=== PATIENT | female | born 1955 | race Caucasian/White ===

== ENCOUNTER 2018-04-07 09:39 | Inpatient (IN) | payer MEDICAID ==
[2018-04-07] MEDS ORDERED: IPRATROPIUM/ALBUTEROL (0.5MG/3MG) NEB INH ONE (09:45)
[2018-04-07] MEDS ORDERED: METHYLPREDNISOLONE PF 125MG/VIAL IVP ONE (09:46)
[2018-04-07] MEDS ORDERED: AZITHROMYCIN 500 MG TABLET PO ONE (09:47)
--- NOTE | 2018-04-07 09:51 | Emergency Department Record ---
History of Present Illness - General Chief Complaint: Wheezing Stated Complaint: WHEEZING/CHEST CONGESTION Time Seen by Provider: 04/07/18 09:44 Source: Patient Mode of Arrival: Ambulatory Limitations: No limitations - History of Present Illness Initial Comments: 63 yo female presents with fever, cough, congestion,chest pain, palpitations and wheezing. The onset was about 5 days ago. The cough has been non productive. No nausea, vomiting or diarrhea. No edema or leg pain. She is concerned about her blood pressure as well. She was taken off her hypertension diuretic combination about 3 months ago. She had hip surgery at that time. She healed without complication. Her BP was low at that time and the medication was not restarted. She had a full cardiac work up at that time pre op that was normal including an ECHO and nuclear stress test. No cardiac history. The patient reports that she had an "abnormal EKG" prior to nasal and hip surgery this year. Because of the abnormal EKG she was sent to Dr Wan Lott of [facility]. She reports she had the ECHO and Stress test prior to surgery. Her understanding is the tests were normal. She has had prior palpitations. No known CAD, DVT, CHF. PCP is Taina Bruno. She has not seen her since surgery. She was seen by the PA once in the office. MD Complaint: Shortness of breath, Wheezing, Other (Cough, Fever) -: Days(s) (5) Asthma History: Other Severity: Moderate Context: Recent URI Associated Symptoms: Dry cough - Related Data Current Asthma Therapy: None Home Medications Medication Instructions Recorded Confirmed Last Taken Amitriptyline HCl [Elavil] 25 mg PO QHS 04/07/18 04/07/18 3 Days Ago ~04/04/18 Tramadol HCl [Ultram] 50 mg PO BID 04/07/18 04/07/18 Unknown Allergies Allergy/AdvReac Type Severity Reaction Status Date / Time Penicillins Allergy Mild hives Verified 04/07/18 09:53 Review of Systems Constitutional: Reports: Chills, Fever, Malaise Eyes: Denies: Eye discharge, Eye pain, Photophobia ENT: Reports: Congestion, Throat pain Respiratory: Reports: Cough, Dyspnea, Wheezes Cardiovascular: Reports: As per HPI, Chest pain Endocrine: Reports: Fatigue Gastrointestinal: Denies: Abdominal pain, Diarrhea, Nausea, Vomiting Musculoskeletal: Denies: Back pain, Gout, Joint swelling, Myalgia Skin: Denies: Bruising, Rash Neurological: Denies: Abnormal gait, Headache, Numbness, Tingling, Weakness Psychiatric: Denies: Anxiety Hematological/Lymphatic: Denies: Blood Clots, Easy bleeding, Easy bruising, Swollen glands Physical Exam - General General Appearance: Alert, Oriented x3, Cooperative, No acute distress Limitations: No limitations - Head Head exam: Atraumatic, Normal inspection - Eye Eye exam: Normal appearance, PERRL. negative: Conjunctival injection, Scleral icterus - ENT ENT exam: Normal exam, Mucous membranes moist, Normal orophraynx Ear exam: Normal external inspection Nasal Exam: Normal inspection Mouth exam: Normal external inspection Teeth exam: Normal inspection Throat exam: Normal inspection. negative: Tonsillar erythema - Neck Neck exam: Normal inspection. negative: Lymphadenopathy - Respiratory Respiratory exam: Decreased breath sounds, Prolonged expiratory, Rhonchi, Wheezes. negative: Normal lung sounds bilaterally, Accessory muscle use, Chest wall tenderness, Respiratory distress - Cardiovascular Cardiovascular Exam: Regular rate, Normal rhythm, Normal heart sounds - GI/Abdominal GI/Abdominal exam: Soft. negative: Tenderness - Rectal Rectal exam: Deferred - exam: Deferred - Extremities Extremities exam: Normal inspection, Full ROM, Normal capillary refill. negative: Calf tenderness, Pedal edema, Tenderness - Back Back exam: Denies: CVA tenderness (R), CVA tenderness (L) - Neurological Neurological exam: Alert, Normal gait, Oriented X3 - Psychiatric Psychiatric exam: Normal affect, Normal mood - Skin Skin exam: Dry, Intact, Normal color, Warm Course - Reevaluation(s) Reevaluation #1: 04/07/18 09:55 EKG NSR rate is 77 with PVC's, poor r wave progression, L axis, intervals normal. NS ST changes. 04/07/18 10:00 No old EKG on record at [facility] 04/07/18 10:27 After the duoneb the patient is mildly improved, wheezing in the RUL continues. 04/07/18 10:27 [facility] contacted for records. 04/07/18 10:31 The CMP was reviewed. No acute changes The Troponin is normal. The BNP is minimally elevated at 230 04/07/18 10:32 The Influenza were negative 04/07/18 11:[address] of the chest was completed. She has a right lower lobe pneumonia. Adenopathy that is likely reactive. A partial renal mass was seen. Follow up imaging of the abdomen was recommended. The patient informed of the findings and need for follow up to rule out cancer 04/07/18 11:49 Annia Marr of the admission service for pneumonia, hypertension, Medical Decision Making - Lab Data Result diagrams: 04/07/18 10:00 04/07/18 10:00 Disposition Disposition: Discharge Clinical Impression: Pneumonia Qualifiers: Pneumonia type: due to unspecified organism Laterality: right Lung location: lower lobe of lung Qualified Code(s): J18.1 - Lobar pneumonia, unspecified organism Disposition: Still a Patient at [facility] Decision to Admit: Admit from ER Decision to Admit Date: 04/07/18 Decision to Admit Time: 11:40 Condition: (2) Stable Forms: Patient Portal Access Time of Disposition: 11:52 Quality - Quality Measures Quality Measures: N/A - Blood Pressure Screening Does Patient Have Any of the Following: Active Dx of HTN Blood Pressure Classification: Hypertensive Reading Systolic Measurement: 191 Diastolic Measurement: 111 Screening for High Blood Pressure: Patient Exclusion, Hx of HTN [[id number]]
[2018-04-07] MEDS ORDERED: ASPIRIN 81 MG CHEWABLE TABLET PO ONE (09:59)
[2018-04-07 10:07] LABS: BASO % 0.2 % (0-6); EOS % 1.4 % (0-6); GRAN % 69.6 % (47-80); HEMATOCRIT 44.3 % (35.0-47.0); HEMOGLOBIN 14.8 gm/dl (11.6-16.0); LYMPH % 20.5 % (16-45); MEAN CORPUSCULAR HEMOGLOBIN 27.4 pg (27-33); MEAN CORPUSCULAR HGB CONC 33.4 g/dl (32-36); MEAN PLATELET VOLUME 10.6 fl (7.4-10.4); MONO % 8.3 % (0-9); PLATELET COUNT 212 K/uL (130-400); WHITE BLOOD COUNT W/O DIFF 5.1 K/uL (4.2-12.2)
[2018-04-07 10:17] LABS: BLOOD UREA NITROGEN 9 mg/dL (8-23); CREATININE 0.9 mg/dL (0.5-0.9); EST GLOMERULAR FILTRATION RATE > 60 mL/min
[2018-04-07 10:20] LABS: GLUCOSE,RANDOM 105 mg/dL (74-109)
[2018-04-07 10:29] LABS: INFLUENZA A NEGATIVE (NEGATIVE); INFLUENZA B NEGATIVE (NEGATIVE)
[2018-04-07 10:30] LABS: PARTIAL THROMBOPLASTIN TIME 30.1 SECONDS (24.5-39.1); PROTHROMBIN TIME (PATIENT) 10.3 SECONDS (9.5-12.1)
[2018-04-07] MEDS ORDERED: CEFTRIAXONE SODIUM 1 GM in 0.9 % SODIUM CHLORIDE 100ML 100 ML IVPB ONE (11:39)
[2018-04-07] MEDS ORDERED: IPRATROPIUM/ALBUTEROL (0.5MG/3MG) NEB INH PRN (13:45)
[2018-04-07] MEDS ORDERED: ATORVASTATIN 20 MG TABLET PO SCH (13:45)
[2018-04-07] MEDS ORDERED: ALPRAZOLAM 1 MG TAB PO PRN (13:45)
[2018-04-07] MEDS ORDERED: CEFTRIAXONE SODIUM 1 GM in 0.9 % SODIUM CHLORIDE 100ML 100 ML IVPB SCH (13:45)
[2018-04-07] MEDS: IPRATROPIUM/ALBUTEROL (0.5MG/3MG) NEB INH SCH ×3 (15:03→22:55)
[2018-04-07] MEDS: LISINOPRIL 5 MG TABLET PO SCH (15:15)
[2018-04-07] MEDS: TRAMADOL HCL 50 MG TABLET PO SCH (21:35)
[2018-04-07] MEDS ORDERED: AMITRIPTYLINE 25 MG TABLET PO SCH (22:00)
[2018-04-08] MEDS: IPRATROPIUM/ALBUTEROL (0.5MG/3MG) NEB INH SCH ×3 (02:32→09:59)
--- NOTE | 2018-04-08 02:38 | History & Physical ---
History of Present Illness - Date of Service Date of Service for History & Physical: 04/08/18 - History of Present Illness Admitting Diagnosis: Pneumonia History of Present Illness: Mrs. Ortiz is a 63 yo female who presented to the ED on 04/07/18 with fever, cough, congestion, palpitations and wheezing. The onset was about 5 days ago. The cough has been non productive. No nausea, vomiting or diarrhea. No edema or leg pain. She was concerned about her blood pressure as well. She was taken off her hypertension diuretic combination about 3 months ago. She had hip surgery at that time. She healed without complication. Her BP was low at that time and the medication was not restarted. She had a full cardiac work up at that time pre op that was normal including an ECHO and nuclear stress test. No cardiac history. The patient reports that she had an "abnormal EKG" prior to nasal and hip surgery this year. Because of the abnormal EKG she was sent to Dr Wan Lott of [facility]. She reports she had the ECHO and Stress test prior to surgery. Her understanding is the tests were normal. She has had prior palpitations. No known CAD, DVT, CHF. In the ED, her vital signs were stable (except for elevated BP) and CMP and CBC unremarkable. Her d dimer was elevated and a chest CT was done- it did demonstrate a right lower lobe pneumonia. She does have some adenopathy that is likely reactive, and a partial renal mass was visualized- f/u imaging of abdomen was recommended. Pt. was informed of findings and need to f/u to r/o cancer. BNP was slightly elevated at 230. Troponin was normal. Influenza test was negative. Her EKG showed NSR rate of 77 with PVCs, poor R wave progression, L axis and intervals normal. NS ST changes. After the duoneb the patient mildly improved, wheezing in the RUL continues. Pt. was admitted for pneumonia and hypertension- plan IV antibiotics and duo neb treatments. 04/08/18: Pt. is resting comfortably in bed this morning. She reports her symptoms have greatly improved. Wheezing greatly improved and in RUL only at this time. She has remained afebrile and her labs are unremarkable. Plan to change abx to PO and d/c home this evening. Travel Screening - Travel/Exposure Within Last 30 Days Have you traveled within the last 30 days?: No - Travel/Exposure Within Last Year Have you traveled outside the [place] in the last year?: No - Additonal Travel Details Have you been exposed to anyone with a communicable illness?: No - Travel Symptoms Symptom Screening: None Review of Systems Constitutional: Reports: Chills, Fever, Malaise Eyes: Denies: Eye discharge, Eye pain, Photophobia ENT: Reports: Congestion, Throat pain Respiratory: Reports: Cough, Dyspnea, Wheezes Cardiovascular: Reports: As per HPI, Chest pain Endocrine: Reports: Fatigue Gastrointestinal: Denies: Abdominal pain, Diarrhea, Nausea, Vomiting Musculoskeletal: Denies: Back pain, Gout, Joint swelling, Myalgia Skin: Denies: Bruising, Rash Neurological: Denies: Abnormal gait, Headache, Numbness, Tingling, Weakness Psychiatric: Denies: Anxiety Hematological/Lymphatic: Denies: Blood Clots, Easy bleeding, Easy bruising, Swollen glands Past Medical History - SOCIAL HISTORY Smoking Status: Never smoker Alcohol Use: None Drug Use: None - RESPIRATORY Hx Respiratory Disorders: Yes Comment:: seasonal allergies - CARDIOVASCULAR Hx Cardio Disorders: Yes Hx Hypertension: Yes Hx Hypotension: Yes (after surgery) Hx Irregular Heartbeat: Yes (feels when BP elevated) Comment:: cardiac stress 09/2017 at [facility] - [facility]UR[facility] Hx Neuro Disorders: No - GI Hx GI Disorders: No - Hx Genitourinary Disorders: No - ENDOCRINE Hx Endocrine Disorders: No Hx Diabetes: No Hx Thyroid Disease: No - MUSCULOSKELETAL Hx Musculoskeletal Disorders: Yes Hx Arthritis: Yes Hx Fibromyalgia: Yes - PSYCH Hx Anxiety: Yes Hx Depression: Yes - HEMATOLOGY/ONCOLOGY Hx Hematology/Oncology Disorders: Yes Hx Bruising: Yes Hx Cancer: Yes (nose) Family Medical History Any Significant Family History?: Yes Hx Cancer: Father *Cancer Comment: colon/liver Hx Heart Disease: Mother *Heart Comment: a-fib H&P Meds/Allergies - Allergies Allergies: Allergies Allergy/AdvReac Type Severity Reaction Status Date / Time Penicillins Allergy Mild hives Verified 04/07/18 09:53 - Home Medications Home Medications Medication Instructions Recorded Confirmed Last Taken Amitriptyline HCl [Elavil] 25 mg PO QHS 04/07/18 04/07/18 3 Days Ago ~04/04/18 Tramadol HCl [Ultram] 50 mg PO BID 04/07/18 04/07/18 Unknown Previous Rx's Medication Instructions Recorded Albuterol Sulfate [Ventolin Hfa] 1 puff INH RESP.Q4H PRN #1 inhaler 04/08/18 Azithromycin [Zithromax] 250 mg PO DAILY #3 tab 04/08/18 Cefdinir 300 mg PO BID #7 capsule 04/08/18 Lisinopril [Zestril] 5 mg PO DAILY #30 tablet 04/08/18 - Active Medications Active Medications: Current Medications Albuterol/Ipratropium (Duoneb) 3 ml INH RESP.Q4H REPLACED BY [facility] Last Admin: 04/08/18 02:32 Dose: 3 ml Alprazolam (Xanax) 1 mg PO BID PRN PRN Reason: ANXIETY Last Admin: 04/07/18 21:37 Dose: 1 mg Amitriptyline HCl (Elavil) 25 mg PO QHS REPLACED BY [facility] Last Admin: 04/07/18 21:35 Dose: 25 mg Atorvastatin Calcium (Lipitor) 10 mg PO QD REPLACED BY [facility] Last Admin: 04/07/18 15:15 Dose: 10 mg Baclofen (Lioresal) 10 mg PO DAILY REPLACED BY [facility] Enoxaparin Sodium (Lovenox) 40 mg SC DAILY REPLACED BY [facility] Azithromycin 500 mg/ Sodium (Chloride) 250 mls @ 250 mls/hr IVPB Q24H REPLACED BY [facility] Stop: 04/13/18 10:01 Ceftriaxone Sodium 1 gm/ (Sodium Chloride) 100 mls @ 100 mls/hr IVPB Q24H REPLACED BY [facility] Stop: 04/13/18 11:01 Lisinopril (Zestril) 5 mg PO DAILY REPLACED BY [facility] Last Admin: 04/07/18 15:15 Dose: 5 mg Tramadol HCl (Ultram) 50 mg PO BID REPLACED BY [facility] Last Admin: 04/07/18 21:35 Dose: Not Given Physical Exam - Vital Signs Vital Signs: Vital Signs - Last 24 Hrs Temp Pulse Pulse Pulse Resp BP BP 04/08/18 00:00 97.6 F 86 20 157/85 04/07/18 22:55 74 18 04/07/18 21:00 76 16 04/07/18 18:49 78 16 04/07/18 18:00 97.9 F 72 76 16 153/85 04/07/18 15:45 74 74 04/07/18 15:04 80 16 04/07/18 13:40 97.2 F L 74 18 159/91 04/07/18 12:02 74 18 158/99 04/07/18 11:06 71 18 176/82 04/07/18 10:05 82 16 04/07/18 09:42 98.0 F 83 18 191/111 Pulse Ox 04/08/18 00:00 97 04/07/18 22:55 98 04/07/18 21:00 04/07/18 18:49 96 04/07/18 18:00 97 04/07/18 15:45 04/07/18 15:04 95 04/07/18 13:40 97 04/07/18 12:02 97 04/07/18 11:06 98 04/07/18 10:05 04/07/18 09:42 94 L - General General Appearance: Alert, Oriented x3, Cooperative, No acute distress Limitations: No limitations - Head Head exam: Atraumatic, Normal inspection - Eye Eye exam: Normal appearance, PERRL. negative: Conjunctival injection, Scleral icterus - ENT ENT exam: Normal exam, Mucous membranes moist, Normal orophraynx Ear exam: Normal external inspection Nasal Exam: Normal inspection Mouth exam: Normal external inspection Teeth exam: Normal inspection Throat exam: Normal inspection. negative: Tonsillar erythema - Neck Neck exam: Normal inspection. negative: Lymphadenopathy - Respiratory Respiratory exam: Decreased breath sounds, Prolonged expiratory, Rhonchi, Wheezes. negative: Normal lung sounds bilaterally, Accessory muscle use, Chest wall tenderness, Respiratory distress - Cardiovascular Cardiovascular Exam: Regular rate, Normal rhythm, Normal heart sounds - GI/Abdominal GI/Abdominal exam: Soft. negative: Tenderness - Rectal Rectal exam: Deferred - exam: Deferred - Extremities Extremities exam: Normal inspection, Full ROM, Normal capillary refill. negative: Calf tenderness, Pedal edema, Tenderness - Back Back exam: Denies: CVA tenderness (R), CVA tenderness (L) - Neurological Neurological exam: Alert, Normal gait, Oriented X3 - Psychiatric Psychiatric exam: Normal affect, Normal mood - Skin Skin exam: Dry, Intact, Normal color, Warm Results - Labs Result Diagrams: 04/08/18 06:00 04/08/18 06:00 Labs Last 24 Hours: Laboratory Results - last 24 hr 04/07/18 04/07/18 04/07/18 09:45 09:54 10:00 WBC 5.1 RBC 5.40 Hgb 14.8 Hct 44.3 MCV 82.0 MCH 27.4 MCHC 33.4 RDW 14.0 Plt Count 212 MPV 10.6 H Gran % 69.6 Lymphocytes % 20.5 Monocytes % 8.3 Eosinophils % 1.4 Basophils % 0.2 PT INR APTT D-Dimer Sodium Cancelled Potassium Cancelled Chloride Cancelled Carbon Dioxide Cancelled Anion Gap Cancelled BUN Cancelled Creatinine Cancelled Estimated GFR Cancelled Random Glucose Cancelled Calcium Cancelled Magnesium Cancelled Troponin T NT-Pro-B Natriuret Pep Influenza Type A Ag Influenza Type B Ag 04/07/18 04/07/18 04/07/18 10:00 10:00 10:00 WBC RBC Hgb Hct MCV MCH MCHC RDW Plt Count MPV Gran % Lymphocytes % Monocytes % Eosinophils % Basophils % PT INR APTT D-Dimer 1.20 H Sodium 145 Potassium 3.6 Chloride 101 Carbon Dioxide 28.0 Anion Gap 16.0 BUN 9 Creatinine 0.9 Estimated GFR > 60 Random Glucose 105 Calcium 9.2 Magnesium 2.1 Troponin T < 0.010 NT-Pro-B Natriuret Pep 230.40 H Influenza Type A Ag Negative Influenza Type B Ag Negative 04/07/18 04/07/18 10:00 16:20 WBC RBC Hgb Hct MCV MCH MCHC RDW Plt Count MPV Gran % Lymphocytes % Monocytes % Eosinophils % Basophils % PT 10.3 INR 1.0 APTT 30.1 D-Dimer Sodium Potassium Chloride Carbon Dioxide Anion Gap BUN Creatinine Estimated GFR Random Glucose Calcium Magnesium Troponin T < 0.010 NT-Pro-B Natriuret Pep Influenza Type A Ag Influenza Type B Ag - Imaging and Cardiology CT scan - chest Status: Pending, Image reviewed (RLL pneumonia) VTE H&P Assessment - Risk for VTE Risk for VTE: Yes Risk Level: Low Risk Assessment Date: 04/08/18 Risk Assessment Time: 02:35 VTE Orders Placed or Will Be Placed: Yes Plan - Inpatient Certification Inpatient Certification: Admit to inpatient care: Based on my medical assessment, after consideration of patient's risk factors (age, co-morbidities and patient presenting symptoms and acuity), I expect that this patient will remain in the hospital greater than or equal to two midnights and that the services needed warrant inpatient care because: Patient Risk Factors: [age, co-morbidities] Estimated length of stay: [48-72 hours] The patient may reasonably be expected to be discharged or transferred to a hospital within 96 hours after admission to [facility]. Services needed: [IV antibiotics, respiratory treatments, monitoring of labs and vital signs] Post hospital care (if known): [] I certify that my determination is in accordance with my understanding of Medicare requirements for reasonable and necessary inpatient services. 04/08/18 02:36 - Detailed Diagnosis and Plan (1) Right lower lobe pneumonia Status: Acute Base Code: J18.1 - LOBAR PNEUMONIA, UNSPECIFIED ORGANISM Comment: 04/08/18: RLL pneumonia identified on chest CT in ED on 04/07/18. Rocephin 1gm q24h IV and azithromycin 500mg daily started, duo nebs q4h. Will plan to change to po abx today if improvement upon assessment. (2) Hypertension Status: Acute Base Code: I10 - ESSENTIAL (PRIMARY) HYPERTENSION Comment: : Pt. has hx of hypertension, she has been off her lisinopril/hctz since . She was hypertensive in the ED, remains >150/95. Pt. monitors bp at home and she reports upward trends. 5mg lisinopril daily started. CMP unremarkable, will recheck labs in the am and continue to monitor vital signs. (3) At risk for deep venous thrombosis Status: Acute Base Code: Z91.89 - OTH PERSONAL RISK FACTORS, NOT ELSEWHERE CLASSIFIED Comment: 04/08/18: 40mg sc lovenox daily for dvt prophylaxis (4) Full code status Status: Acute Base Code: Z78.9 - OTHER SPECIFIED HEALTH STATUS Comment: 04/08: Pt. is full code
[2018-04-08 06:09] LABS: BASO % 0.2 % (0-6); GRAN % 75.6 % (47-80); HEMATOCRIT 40.6 % (35.0-47.0); HEMOGLOBIN 13.8 gm/dl (11.6-16.0); MEAN CORPUSCULAR HEMOGLOBIN 27.9 pg (27-33); MEAN PLATELET VOLUME 10.6 fl (7.4-10.4); MONO % 12.2 % (0-9); PLATELET COUNT 230 K/uL (130-400); RED BLOOD COUNT 4.95 M/uL (3.80-5.40); RED CELL DISTRIBUTION WIDTH 14.1 % (11.5-14.5); WHITE BLOOD COUNT W/O DIFF 5.4 K/uL (4.2-12.2)
[2018-04-08 06:36] LABS: ALB/GLOB RATIO 1.6 (1.1-1.8); ALBUMIN 4.2 g/dL (4.0-5.0); ALKALINE PHOSPHATASE 68 U/L (35-104); ALT/SGPT 12 U/L (<33); AST/SGOT 14 U/L (10.0-35.0); BLOOD UREA NITROGEN 18 mg/dL (8-23); CREATININE 0.8 mg/dL (0.5-0.9); EST GLOMERULAR FILTRATION RATE > 60 mL/min; GLUCOSE,RANDOM 113 mg/dL (74-109); TOTAL PROTEIN 6.8 g/dL (6.6-8.7)
[2018-04-08] MEDS: TRAMADOL HCL 50 MG TABLET PO SCH ×2 (09:45→11:43)
[2018-04-08] MEDS: LISINOPRIL 5 MG TABLET PO SCH (09:45)
[2018-04-08] MEDS ORDERED: BACLOFEN 10 MG TABLET PO SCH (10:00)
[2018-04-08] MEDS ORDERED: ENOXAPARIN 40 MG/0.4 ML SYR SC SCH (10:00)
[2018-04-08] MEDS ORDERED: AZITHROMYCIN 500 MG in 0.9 % SODIUM CHLORIDE 250ML 250 ML IVPB SCH (10:00)
[2018-04-08] MEDS ORDERED: CEFTRIAXONE SODIUM 1 GM in 0.9 % SODIUM CHLORIDE 100ML 100 ML IVPB SCH (11:00)
[2018-04-08] MEDS ORDERED: ALBUTEROL HFA 8 GM INHALER INH PRN (11:29)
[2018-04-08] MEDS ORDERED: CEFDINIR 300 MG CAPSULE PO SCH (11:30)
--- NOTE | 2018-04-08 11:37 | Discharge Summary ---
Providers Discharge Summary Date: 04/08/18 Date of admission: 04/07/18 13:20 Expected Date of Discharge: 04/08/18 Attending physician: YANDY SCHWARTZ Primary care physician: GIRMA ALFREDO M.D. Physical Exam - Vital Signs Vital Signs: Vital Signs - Last 24 Hrs Temp Pulse Pulse Pulse Resp BP Pulse Ox 04/08/18 10:00 97.9 F 84 78 18 141/78 96 04/08/18 08:58 80 80 16 04/08/18 06:09 70 16 96 04/08/18 02:34 81 16 99 04/08/18 00:00 97.6 F 86 20 157/85 97 04/07/18 22:55 74 18 98 04/07/18 21:00 76 16 04/07/18 18:49 78 16 96 04/07/18 18:00 97.9 F 72 76 16 153/85 97 04/07/18 15:45 74 74 04/07/18 15:04 80 16 95 04/07/18 13:40 97.2 F L 74 18 159/91 97 04/07/18 12:02 74 18 158/99 97 - General General Appearance: Alert, Oriented x3, Cooperative, No acute distress Limitations: No limitations - Head Head exam: Atraumatic, Normal inspection - Eye Eye exam: Normal appearance, PERRL. negative: Conjunctival injection, Scleral icterus - ENT ENT exam: Normal exam, Mucous membranes moist, Normal orophraynx Ear exam: Normal external inspection Nasal Exam: Normal inspection Mouth exam: Normal external inspection Teeth exam: Normal inspection Throat exam: Normal inspection. negative: Tonsillar erythema - Neck Neck exam: Normal inspection. negative: Lymphadenopathy - Respiratory Respiratory exam: Prolonged expiratory, Wheezes (RUL expiratory wheeze). negative: Normal lung sounds bilaterally, Accessory muscle use, Chest wall tenderness, Respiratory distress - Cardiovascular Cardiovascular Exam: Regular rate, Normal rhythm, Normal heart sounds - GI/Abdominal GI/Abdominal exam: Soft. negative: Tenderness - Rectal Rectal exam: Deferred - exam: Deferred - Extremities Extremities exam: Normal inspection, Full ROM, Normal capillary refill. negative: Calf tenderness, Pedal edema, Tenderness - Back Back exam: Denies: CVA tenderness (R), CVA tenderness (L) - Neurological Neurological exam: Alert, Normal gait, Oriented X3 - Psychiatric Psychiatric exam: Normal affect, Normal mood - Skin Skin exam: Dry, Intact, Normal color, Warm Hospitalization - Hospitalization Admission Diagnosis: Pneumonia - Problem List/Discharge Diagnosis (1) Right lower lobe pneumonia Status: Acute Base Code: J18.1 - LOBAR PNEUMONIA, UNSPECIFIED ORGANISM Comment: 04/08/18: RLL pneumonia identified on chest CT in ED on 04/07/18. ABX changed to PO this morning- 300mg cefdinir bid and azithromycin 250mg daily ( total of 5 day antibiotic therapy). Wheezing has improved and will d/c home today- will send albuterol inhaler for home use- RT to teach proper use of inhaler and provide a spacer. (2) Hypertension Status: Acute Base Code: I10 - ESSENTIAL (PRIMARY) HYPERTENSION Comment: : Pt. has hx of hypertension, she has been off her lisinopril/hctz since . She was hypertensive in the ED, remains >150/95. Pt. monitors bp at home and she reports upward trends. 5mg lisinopril daily started. Labs unremarkable. Seriel troponins unremarkable. BP has responded to 5mg lisinopril- now 144/77. (was 176/82 in ED). Will d/c home with Rx of lisinopril- pt. to f/u with pcp for management. (3) At risk for deep venous thrombosis Status: Acute Base Code: Z91.89 - OTH PERSONAL RISK FACTORS, NOT ELSEWHERE CLASSIFIED Comment: 04/08/18: Plan to d/c home today and pt. will return to normal level of activity. (4) Full code status Status: Acute Base Code: Z78.9 - OTHER SPECIFIED HEALTH STATUS Comment: 04/08: Pt. is full code - Hospitalization Course Disposition: Home, Self-Care Hospital Course: Mrs. Ortiz is a 63 yo female who presented to the ED on 04/07/18 with fever, cough, congestion, palpitations and wheezing. The onset was about 5 days ago. The cough has been non productive. No nausea, vomiting or diarrhea. No edema or leg pain. She was concerned about her blood pressure as well. She was taken off her hypertension diuretic combination about 3 months ago. She had hip surgery at that time. She healed without complication. Her BP was low at that time and the medication was not restarted. She had a full cardiac work up at that time pre op that was normal including an ECHO and nuclear stress test. No cardiac history. The patient reports that she had an "abnormal EKG" prior to nasal and hip surgery this year. Because of the abnormal EKG she was sent to Dr Wan Lott of [facility]. She reports she had the ECHO and Stress test prior to surgery. Her understanding is the tests were normal. She has had prior palpitations. No known CAD, DVT, CHF. In the ED, her vital signs were stable (except for elevated BP) and CMP and CBC unremarkable. Her d dimer was elevated and a chest CT was done- it did demonstrate a right lower lobe pneumonia. She does have some adenopathy that is likely reactive, and a partial renal mass was visualized- f/u imaging of abdomen was recommended. Pt. was informed of findings and need to f/u to r/o cancer. BNP was slightly elevated at 230. Troponin was normal. Influenza test was negative. Her EKG showed NSR rate of 77 with PVCs, poor R wave progression, L axis and intervals normal. NS ST changes. After the duoneb the patient mildly improved, wheezing in the RUL continues. Pt. was admitted for pneumonia and hypertension- plan IV antibiotics and duo neb treatments. 04/08/18: Pt. is resting comfortably in bed this morning. She reports her symptoms have greatly improved. Wheezing greatly improved and in RUL only at this time. She has remained afebrile and her labs are unremarkable. Plan to change abx to PO and d/c home this evening. Procedures: Imaging and X-Rays 04/07/18 10:36 CHEST CTA w contrast [CTA] Stat Cardiology Procedures 04/07/18 09:45 Manager Clinical NOW EKG NOW 04/07/18 13:45 Manager Clinical .Continuous Abnormal Labs: Abnormal Lab Results 04/07/18 04/07/18 04/07/18 Range/Units 10:00 10:00 10:00 MPV 10.6 H (7.4-10.4) fl Lymphocytes % (16-45) % Monocytes % (0-9) % D-Dimer 1.20 H (0-0.59) mg/L FEU Anion Gap (7-16) Random Glucose (74-109) mg/dL NT-Pro-B Natriuret Pep 230.40 H (<125) pg/mL 04/08/18 04/08/18 Range/Units 06:00 06:00 MPV 10.6 H (7.4-10.4) fl Lymphocytes % 12.0 L (16-45) % Monocytes % 12.2 H (0-9) % D-Dimer (0-0.59) mg/L FEU Anion Gap 20.0 H (7-16) Random Glucose 113 H (74-109) mg/dL NT-Pro-B Natriuret Pep (<125) pg/mL Condition at Discharge: (2) Stable VTE Discharge VTE Reason For No Overlap Therapy: Not Indicated (Pt. will return to normal level of activity) Discharge Medications - Discharge Medications Prescriptions: Albuterol Sulfate [Ventolin Hfa] 1 puff INH RESP.Q4H PRN #1 inhaler PRN Reason: Wheezing Azithromycin [Zithromax] 250 mg PO DAILY #3 tab Cefdinir 300 mg PO BID #7 capsule Lisinopril [Zestril] 5 mg PO DAILY #30 tablet Home Medications: Ambulatory Orders Alprazolam [Xanax] 1 mg PO BID PRN tab 01/26/18 [Last Taken 1 Day Ago ~04/06/18 ] Atorvastatin Calcium 10 mg PO QD tab 01/26/18 [Last Taken 1 Day Ago ~04/06/18] Baclofen 10 mg PO DAILY tab 01/26/18 [Last Taken 1 Day Ago ~04/06/18] Amitriptyline HCl [Elavil] 25 mg PO QHS 04/07/18 [Last Taken 3 Days Ago ~] Tramadol HCl [Ultram] 50 mg PO BID 04/07/18 [Last Taken Unknown] Albuterol Sulfate [Ventolin Hfa] 1 puff INH RESP.Q4H PRN #1 inhaler 04/08/18 [ Last Taken Unknown] Azithromycin [Zithromax] 250 mg PO DAILY #3 tab 04/08/18 [Last Taken Unknown] Cefdinir 300 mg PO BID #7 capsule 04/08/18 [Last Taken Unknown] Lisinopril [Zestril] 5 mg PO DAILY #30 tablet 04/08/18 [Last Taken Unknown] Discharge Plan - Discharge Instructions Activity at Discharge: Increase Activity as Tolerated Diet at Discharge: Regular Diet Additional Instructions: Start azithromycin 250mg daily at 10am on 04/09/18 Start cefdinir 300mg twice daily, first dose tonight at 11pm Albuterol inhaler every 4 hours for cough/wheezing Drink plenty of fluids, mucinex over the counter can also help to thin secretions Follow up with your primary care provider in 5-7 days Return to the ED if you develop worsening shortness of breath or any chest pain Quality Measures - Quality Measures Quality Measures: Documentation of Current Medications in Medical Record, Screening for High Blood Pressure and F/U Documented - Current Medications Quality Measure: Measure #130: Documentation of Current Medications Documentation of Current Medications: <Current Medications Documented/Reviewed> [G8427] - Blood Pressure Screening Quality Measure: Screening for High Blood Pressure and Follow-Up Documented Does Patient Have Any of the Following: Active Dx of HTN Blood Pressure Classification: Hypertensive Reading Systolic Measurement: 191 Diastolic Measurement: 111 Screening for High Blood Pressure: Patient Exclusion, Hx of HTN [G9744] - Elder Abuse Suspicion Index EASI Reference Information: Daniel JOHNSON, Jacque C, Mary Alice D, Dayan Bill.Development and validation of a tool to assist physicians identification of elder abuse: The Elder Abuse Suspicion Index (EASI ). Journal of Elder Abuse and Neglect, 2008; 20 (3): 276-300.
--- NOTE | 2018-04-08 20:55 | CT ANGIOGRAM REPORT ---
EXAM: CT ANGIOGRAM CHEST CTA w contrast HISTORY: COUGH, WHEEZING, AND CHEST PAIN FOR 5 DAYS. ELEVATED D-DIMER. EVALUATE FOR PULMONARY EMBOLUS. TECHNIQUE: Routine CT angiography images obtained of the chest following intravenous administration of contrast. Amount and type of contrast in the medical record. FINDINGS: A 15 mm exophytic hypodense nodule right lobe of the thyroid. This could be further assessed with thyroid ultrasound. Heart is not enlarged. No pericardial effusion. Aorta enhances normally with contrast. No central filling defects in the pulmonary arteries to suggest acute PE. There are prominent bilateral hilar lymph nodes measuring slightly greater than 10 mm short axis. There are multiple mildly prominent mediastinal lymph nodes, though nonenlarged by CT criteria. There is infiltrate within the superior segment right lower lobe. No pleural effusions. Visualized upper abdomen demonstrates a questioned left renal mass on most inferior images. No acute osseous abnormality. IMPRESSION: 1. NO PULMONARY EMBOLUS. 2. PATCHY INFILTRATE SUPERIOR SEGMENT RIGHT LOWER LOBE. 3. ENLARGED BILATERAL HILAR LYMPH NODES, WHICH COULD BE REACTIVE. PREVIOUS IMAGES UNAVAILABLE TO DOCUMENT STABILITY. A PRECAUTION, CONSIDER FOLLOW-UP CT IN THREE MONTHS, UNDERLYING NEOPLASTIC PROCESS NOT EXCLUDED. 4. ALSO INCIDENTALLY NOTED ON MOST INFERIOR IMAGES IS A POSSIBLE MASS IN THE LEFT KIDNEY. THIS COULD BE FURTHER ASSESSED WITH POSTCONTRAST CT OF THE ABDOMEN AND PELVIS. JOB NUMBER: [id number] [facility]
[2018-04-09] MEDS ORDERED: AZITHROMYCIN 250 MG TABLET PO SCH (10:00)
== END 2018-04-08 13:05 | disposition home or self-care (01) | DRG 195 ==
LOC: ER 09:39 → MEDSURG 13:20
PROVIDERS: ADMIT Internal Medicine; ATTEND Internal Medicine
DX: J18.9 Pneumonia, unspecified organism (principal); R00.2 Palpitations; R50.9 Fever, unspecified; R05 Cough; I10 Essential (primary) hypertension; M19.90 Unspecified osteoarthritis, unspecified site; M79.7 Fibromyalgia; Z85.828 Personal history of other malignant neoplasm of skin
CPT/HCPCS: 71275; 80048; 80053; 83735; 83880; 84484; 85025; 85379; 85610; 85730; 87400; 93005; 93010; 94640; 94664; 96365; 96375; 99223; 99285; J0456; J1650; J2930; J7050

== ENCOUNTER 2019-05-26 23:54 | Emergency (ER) | payer MEDICAID ==
[2019-05-27 00:06] LABS: URINE APPEARANCE CLOUDY; URINE BILIRUBIN NEGATIVE (NEGATIVE); URINE BLOOD LARGE (NEGATIVE); URINE COLOR RED; URINE GLUCOSE (UA) NEGATIVE (NEGATIVE); URINE KETONE TRACE (NEGATIVE)
[2019-05-27 00:07] LABS: URINE PROTEIN 300 mg/dL (NEGATIVE)
[2019-05-27 00:09] LABS: URINE BACTERIA NONE SEEN; URINE EPITHELIAL CELLS NONE SEEN (FEW); URINE NITRITE POSITIVE (NEGATIVE); URINE WBC NONE SEEN (0-2/hpf)
[2019-05-27 00:10] LABS: URINE LEUKOCYTE ESTERASE SMALL (NEGATIVE)
--- NOTE | 2019-05-27 00:28 | Emergency Department Record ---
History of Present Illness - General Chief complaint: Female Urogenital Problem Stated complaint: BLOOD IN URINE Time Seen by Provider: 05/27/19 00:16 Source: Patient Mode of Arrival: Ambulatory Limitations: No limitations - History of Present Illness Initial comments: pt had sudden onset of hematuria w pressure and l flank pain Complaint: Pelvic pain Onset/Timin -: Hour(s) Radiation: L flank Severity: Mild Severity scale (1-10): 2 Quality: Dull Consistency: Intermittent Improves with: None Worsens with: None Patient : No Associated Symptoms: Denies other symptoms - Related Data Previous Rx's Medication Instructions Recorded Albuterol Sulfate [Ventolin Hfa] 1 puff INH RESP.Q4H PRN #1 inhaler 04/08/18 Allergies Allergy/AdvReac Type Severity Reaction Status Date / Time Penicillins Allergy Mild hives Verified 04/07/18 09:53 Travel Screening - Travel/Exposure Within Last 30 Days Have you traveled within the last 30 days?: No - Travel/Exposure Within Last Year Have you traveled outside the [place] in the last year?: No - Additonal Travel Details Have you been exposed to anyone with a communicable illness?: No - Travel Symptoms Symptom Screening: None Review of Systems Reviewed: No additional complaints except as noted below Constitutional: Reports: As per HPI. Denies: Chills, Fever, Malaise, Night sweats, Weakness, Weight change Eyes: Reports: As per HPI. Denies: Eye discharge, Eye pain, Photophobia, Vision change ENT: Reports: As per HPI. Denies: Congestion, Dental pain, Ear pain, Epistaxis, Hearing loss, Throat pain Respiratory: Reports: As per HPI. Denies: Cough, Dyspnea, Hemoptysis, Stridor, Wheezes Cardiovascular: Reports: As per HPI. Denies: Arrhythmia, Chest pain, Dyspnea on exertion, Edema, Murmurs, Orthopnea, Palpitations, Paroxysmal nocturnal dyspnea, Rheumatic Fever, Syncope Endocrine: Reports: As per HPI. Denies: Fatigue, Heat or cold intolerance, Polydipsia, Polyuria Gastrointestinal: Reports: As per HPI. Denies: Abdominal pain, Constipation, Diarrhea, Hematemesis, Hematochezia, Melena, Nausea, Vomiting Genitourinary: Reports: As per HPI, Hematuria. Denies: Abnormal menses, Discharge, Dyspareunia, Dysuria, Frequency, Incontinence, Retention, Urgency Musculoskeletal: Reports: As per HPI. Denies: Arthralgia, Back pain, Gout, Joint swelling, Myalgia, Neck pain Skin: Reports: As per HPI. Denies: Bruising, Change in color, Change in hair/nails, Lesions, Pruritus, Rash Neurological: Reports: As per HPI. Denies: Abnormal gait, Confusion, Headache, Numbness, Paresthesias, Seizure, Tingling, Tremors, Vertigo, Weakness Psychiatric: Reports: As per HPI. Denies: Anxiety, Auditory hallucinations, Depression, Homicidal thoughts, Suicidal thoughts, Visual hallucinations Hematological/Lymphatic: Reports: As per HPI. Denies: Anemia, Blood Clots, Easy bleeding, Easy bruising, Swollen glands Past Medical History - SOCIAL HISTORY Smoking Status: Never smoker Alcohol Use: None Drug Use: None - RESPIRATORY Hx Respiratory Disorders: Yes Comment:: seasonal allergies - CARDIOVASCULAR Hx Cardio Disorders: Yes Hx Hypertension: Yes Hx Hypotension: Yes (after surgery) Hx Irregular Heartbeat: Yes (feels when BP elevated) Comment:: cardiac stress 09/2017 at [facility] - NEURO Hx Neuro Disorders: No - GI Hx GI Disorders: No - Hx Genitourinary Disorders: Yes Hx Kidney Stones: No Hx UTI: Yes - ENDOCRINE Hx Endocrine Disorders: No Hx Diabetes: No Hx Thyroid Disease: No - MUSCULOSKELETAL Hx Musculoskeletal Disorders: Yes Hx Arthritis: Yes Hx Fibromyalgia: Yes - PSYCH Hx Anxiety: Yes Hx Depression: Yes - HEMATOLOGY/ONCOLOGY Hx Hematology/Oncology Disorders: Yes Hx Bruising: Yes Hx Cancer: Yes (nose) Family Medical History Any Significant Family History?: Yes Hx Cancer: Father *Cancer Comment: colon/liver Hx Heart Disease: Mother *Heart Comment: a-fib Physical Exam - General General Appearance: Alert, Oriented x3, Cooperative, Mild distress - Head Head exam: Normal inspection - Eye Eye exam: Normal appearance, PERRL, EOMI Pupils: Normal accommodation - ENT ENT exam: Normal exam, Mucous membranes moist, Normal external ear exam, Normal orophraynx Ear exam: Normal external inspection. negative: External canal tenderness Nasal Exam: Normal inspection. negative: Discharge, Sinus tenderness Mouth exam: Normal external inspection, Tongue normal Teeth exam: Normal inspection. negative: Dental caries Throat exam: Normal inspection. negative: Tonsillar erythema, Tonsillar exudate - Neck Neck exam: Normal inspection, Full ROM. negative: Tenderness - Respiratory Respiratory exam: Normal lung sounds bilaterally. negative: Respiratory distress - Cardiovascular Cardiovascular Exam: Regular rate, Normal rhythm, Normal heart sounds - GI/Abdominal GI/Abdominal exam: Soft, Normal bowel sounds, Tenderness - Rectal Rectal exam: Deferred - exam: Deferred - Extremities Extremities exam: Normal inspection, Full ROM, Normal capillary refill. negative: Tenderness - Back Back exam: Reports: Normal inspection, CVA tenderness (L), Full ROM. Denies: Muscle spasm, Rash noted, Tenderness - Neurological Neurological exam: Alert, CN II-XII intact, Normal gait, Oriented X3 - Psychiatric Psychiatric exam: Normal affect, Normal mood - Skin Skin exam: Dry, Intact, Normal color, Warm Course Vital Signs 05/27/19 05/27/19 00:00 00:04 Temperature 97.7 F 97.7 F Pulse Rate 69 Pulse Rate [ 74 Pulse Ox Probe] Respiratory 20 20 Rate Blood Pressure 157/131 Blood Pressure 186/88 [Left Arm] Pulse Ox 96 98 - Reevaluation(s) Reevaluation #1: 05/27/19 01:56 pt has 7cm renal mass. this was partially seen in 04/06 and further evaluation was highly recommended.. pt states she has not had any further eval because she had an ultrasound of her kidney in 2017 that was fine. she states she had a conversation w her family doctor regarding this. Medical Decision Making - Lab Data Result diagrams: 05/27/19 00:10 05/27/19 00:10 Lab Results 05/27/19 Range/Units 00:07 Urine Color Red H Urine Appearance Cloudy Urine pH 7.0 (5.0-8.0) Ur Specific [place] 1.020 (1.002-1.030) Urine Protein 300 mg/dl H (NEGATIVE) Urine Glucose (UA) Negative (NEGATIVE) Urine Ketones Trace H (NEGATIVE) Urine Blood Large H (NEGATIVE) Urine Nitrite Positive H (NEGATIVE) Urine Bilirubin Negative (NEGATIVE) Urine Urobilinogen 2.0 H (0.20 - 1.00) E.U./dL Ur Leukocyte Esterase Small H (NEGATIVE) Urine RBC Too numerous to cnt (NONE SEEN) Urine WBC None seen (0-2/hpf) Ur Epithelial Cells None seen (FEW) Urine Bacteria None seen Disposition Disposition: Transfer Clinical Impression: Left kidney mass Hydronephrosis Qualifiers: Hydronephrosis type: other Qualified Code(s): N13.39 - Other hydronephrosis Disposition: Acute Care Hospital Transfer Transfer To: [facility] Reason For Transfer: needs further eval Accepting Physician: morales marquez and aria Time Discussed w/Accepting Physician: 02:13 Forms: Patient Portal Access Quality - Quality Measures Quality Measures: N/A - Blood Pressure Screening Does Patient Have Any of the Following: Active Dx of HTN Blood Pressure Classification: Hypertensive Reading Systolic Measurement: 157 Diastolic Measurement: 131 Screening for High Blood Pressure: Patient Exclusion, Hx of HTN [G9744]
[2019-05-27 00:32] LABS: ABSOLUTE NEUTROPHIL COUNT 4.01; BASO % 0.4 % (0-6); HEMATOCRIT 45.8 % (35.0-47.0); HEMOGLOBIN 15.4 gm/dl (11.6-16.0); LYMPH % 38.6 % (16-45); MEAN CELL VOLUME 86.1 fl (81-97); MEAN CORPUSCULAR HEMOGLOBIN 28.9 pg (27-33); MEAN CORPUSCULAR HGB CONC 33.6 g/dl (32-36); MEAN PLATELET VOLUME 10.9 fl (7.4-10.4); PLATELET COUNT 296 K/uL (130-400); RED BLOOD COUNT 5.32 M/uL (3.80-5.40); RED CELL DISTRIBUTION WIDTH 13.4 % (11.5-14.5); WHITE BLOOD COUNT W/O DIFF 8.3 K/uL (4.2-12.2)
[2019-05-27 00:50] LABS: BLOOD UREA NITROGEN 13 mg/dL (8-23); CREATININE 0.9 mg/dL (0.5-0.9); EST GLOMERULAR FILTRATION RATE > 60 mL/min
[2019-05-27 00:53] LABS: GLUCOSE,RANDOM 99 mg/dL (74-109)
[2019-05-27] MEDS ORDERED: HYDROMORPHONE HCL 2 MG/ML VIAL IVP ONE (02:12)
[2019-05-27] MEDS ORDERED: ONDANSETRON HCL IV 4 MG/2 ML VIAL IVP ONE (02:12)
--- NOTE | 2019-05-29 07:32 | CT SCAN REPORT ---
EXAM: CT OF THE ABDOMEN AND PELVIS WITHOUT CONTRAST HISTORY: LEFT SIDED BACK PAIN. HEMATURIA. TECHNIQUE: Helical CT examination of the abdomen and pelvis was performed without oral or intravenous contrast administration. Lack of oral and IV contrast utilization limits evaluation of the bowel and solid viscera respectively. Comparison: CT angiogram of the chest dated 04/07/18. FINDINGS: There is minimal dependent atelectasis within the right lung base. There is a 4.7 mm noncalcified nodule in the right middle lobe. On the prior examination this measures 4.2 mm. This is not considered a significant interval change. The lung bases are otherwise clear. No pleural or pericardial effusion. The liver, spleen, pancreas, and adrenal glands are normal in appearance. The gallbladder is unremarkable and no biliary ductal dilatation is seen. A large left renal mass is present involving the medial lower two-thirds with deformity of the renal sinus. This measures 6.9 x 7.4 x 6.6 cm. It is somewhat heterogeneous in density. It is not a simple cyst and is suspicious for malignancy. There is associated presumed hemorrhage within a dilated upper pole intrarenal collecting system on the left. There is likely extrinsic compression of the lower pole collecting system. No obstructing calculus. There is a mass arising exophytically from the posterolateral mid to lower right kidney. This measures 2.2 x 2.2 x 2.4 cm. This has a density higher than simple fluid. A solid mass is not excluded. Just anterior to this is an additional hypodense mass appearing to have fluid density. This measures 1.6 x 1.7 cm. This is likely a cyst. A too small to characterize hypodense mass arises exophytically from the medial upper pole of the left kidney measuring 9- 10 mm. This has not significantly changed since the prior CTA chest examination. No nephrolithiasis. The right renal collecting system is normal in caliber without a ureteral calculus noted. No intraabdominal nor retroperitoneal lymphadenopathy. There is mild atherosclerosis without aneurysmal dilatation. Evaluation of the lower pelvis is limited by beam hardening artifact from bilateral hip prostheses. There is a questionable mass like filling defect in the left posterior aspect of the urinary bladder lumen. This is poorly visualized due to artifact. This measures approximately 4.2 x 5.1 cm. This may represent a blood clot though a solid mass is not excluded. No other focal urinary bladder abnormality is seen. No other evidence of pelvic mass nor adenopathy. No gross bowel dilatation nor bowel wall thickening. The appendix is visualized and normal in appearance. IMPRESSION: 1. LARGE LEFT RENAL MASS SUSPICIOUS FOR MALIGNANCY. THERE IS ASSOCIATED HEMORRHAGE WITHIN A DILATED UPPER POLE COLLECTING SYSTEM. THIS DILATATION MAY RELATE TO EXTRINSIC COMPRESSION BY THE LARGE MASS. 2. MASS ARISING EXOPHYTICALLY FROM THE RIGHT KIDNEY WHICH DOES NOT MEET STRICT DENSITY CRITERIA FOR A SIMPLE CYST. AN ADDITIONAL SOLID MASS CANNOT BE EXCLUDED. FURTHER EVALUATION WITH PRE AND POST CONTRAST ADMINISTRATION MULTIPHASE CT OR MRI EXAMINATION IS RECOMMENDED. THERE IS LIKELY AN ADDITIONAL SMALL CYST WITHIN THE RIGHT KIDNEY. A TOO SMALL TO CHARACTERIZE HYPODENSE LESION ARISING FROM THE UPPER POLE OF THE LEFT KIDNEY IS STABLE SINCE A CTA CHEST EXAMINATION AND IS LIKELY A CYST. 3. POSSIBLE LUMINAL FILLING DEFECT WITHIN THE URINARY BLADDER LEFT OF MIDLINE MEASURING 4.2 X 5.1 CM. THIS MAY REPRESENT A BLOOD CLOT THOUGH A SOLID MASS IS NOT EXCLUDED. CYSTOSCOPY MAY BE OF BENEFIT. JOB NUMBER: [id number] [facility]
== END 2019-05-27 03:20 | disposition short-term general hospital (02) ==
LOC: ER 23:54
DX: N28.89 Other specified disorders of kidney and ureter (principal); N13.39 Other hydronephrosis; R31.0 Gross hematuria; R42 Dizziness and giddiness; I10 Essential (primary) hypertension
CPT/HCPCS: 74176; 80048; 81001; 85025; 96374; 96375; 99285; J2405